=== PATIENT | female | born 1990 | race Caucasian/White ===

== ENCOUNTER 2023-10-04 09:35 | Outpatient (CLI) | payer BC, SELFPAY | END 2023-10-04 09:36 | disposition home or self-care (01) | PROVIDERS: Visit Provider Nurse Practitioner Family | DX: R30.0 Dysuria (principal); B96.20 Unspecified Escherichia coli [E. coli] as the cause of diseases classified elsewhere | CPT/HCPCS: 87086; 87186 ==

== ENCOUNTER 2024-06-04 17:46 | Outpatient (CLI) | payer OTHER, SELFPAY | END 2024-06-04 17:47 | disposition home or self-care (01) | LOC: NFLDREF 06-08 03:26 | PROVIDERS: Visit Provider Nurse Practitioner | DX: N30.00 Acute cystitis without hematuria (principal); B96.20 Unspecified Escherichia coli [E. coli] as the cause of diseases classified elsewhere | CPT/HCPCS: 87086 ==

== ENCOUNTER 2024-07-29 19:01 | Outpatient (CLI) | payer OTHER, SELFPAY | END 2024-07-29 19:02 | disposition home or self-care (01) | LOC: NFLDREF 07-31 08:06 | PROVIDERS: Visit Provider Physician Assistant | DX: R30.0 Dysuria (principal); N39.0 Urinary tract infection, site not specified | CPT/HCPCS: 87086 ==